=== PATIENT | female | born 1965 | race African-American/Black ===

== ENCOUNTER 2023-08-19 06:25 | Day surgery (SDC) | payer MEDICARE, MEDICAID ==
[~2023-08-19] VITALS: Ht 170.2 cm; Wt 63.1 kg
[2023-08-19] VITALS (11 sets, daily range): BP systolic 141–182; BP diastolic 69–90; PULSE 80–85; TEMP 97.1–98.2
--- NOTE | 2023-08-19 08:55 | NUR ---
pt admitted to room from ED, pt a&OX4. admission assessment complete. vss. pt denies pain. right BKA incision is open w bloody discharge. pt oriented to room. fall precautions in place. call light in reach.
--- NOTE | 2023-08-19 10:30 | NUR ---
med rec not completed, notified OR nurse. med list sent down with chart. pt off floor for surgery
--- NOTE | 2023-08-19 12:15 | NUR ---
pt back on floor from surgery, Lizet MELENDEZ provided bedside shift report. vss. pt a&ox4 but drowsy. dressing to RLE is cdi.
--- NOTE | 2023-08-19 14:37 | NUR ---
pt blood pressure consistently running 170s/80s. called Kenzie REECE to update, order to give home blood pressure medications per paper chart.
--- NOTE | 2023-08-19 15:46 | NUR ---
report called to Gabrielle at [facility]. she will set up transportation for discharge. pt denies pain. blood pressure trending down. pt tolerating intake.
--- NOTE | 2023-08-19 16:23 | NUR ---
[facility] transportation here for pt. pt belongings and discharge paperwork sent with patient.
== END 2023-08-19 16:23 | disposition home or self-care (01) ==
LOC: COL.ER 06:25 → SDCO 08:27 → SURG 08:27 → EDBEDREQTM 08:36 → SDCO 16:23
DX: T87.81 Dehiscence of amputation stump (principal); E11.9 Type 2 diabetes mellitus without complications; Z89.511 Acquired absence of right leg below knee
CPT/HCPCS: OP; J0665; J0690; J2405; J2704

== ENCOUNTER 2023-08-30 09:47 | Outpatient (CLI) | payer MEDICARE, MEDICAID ==
[2023-08-30 10:29] VITALS: BP 162/82; PULSE 83; TEMP 99
[2023-08-30] MEDS ORDERED: IRON TABLETS325 MG PO (10:41)
[2023-08-30] MEDS ORDERED: ROXICODONE 55 MG/TAB PO (10:41)
[2023-08-30] MEDS ORDERED: TYLENOL 325MG325 MG PO (10:41)
[2023-08-30] MEDS ORDERED: ASPIRIN E.C. 8181 MG PO (10:41)
[2023-08-30] MEDS ORDERED: VITAMIN C500 MG PO (10:42)
[2023-08-30] MEDS ORDERED: SENNA-S 50 MG-81 TAB PO (10:42)
[2023-08-30] MEDS ORDERED: LIPITOR 40MG TA40 MG PO (10:42)
[2023-08-30] MEDS ORDERED: COREG12.5 MG PO (10:43)
[2023-08-30] MEDS ORDERED: PLAVIX 75MG TAB75 MG PO (10:49)
[2023-08-30] MEDS ORDERED: HCTZ 25MG TAB25 MG PO (10:49)
[2023-08-30] MEDS ORDERED: ZOLOFT 50MG50 MG (10:49)
[2023-08-30] MEDS ORDERED: COMPLETE MULTI1 TAB PO (10:49)
[2023-08-30] MEDS ORDERED: VITAMIN D31000 I1 PO (10:49)
[2023-08-30] MEDS ORDERED: ZOLOFT 100MG100 MG PO (10:50)
[2023-08-30] MEDS ORDERED: TRADJENTA5 MG PO (10:59)
[2023-08-30] MEDS ORDERED: [UNRECOGNIZED DRUG - CODE] PO (11:00)
[2023-08-30] MEDS ORDERED: NORCO 325 MG-51 TAB PO (11:00)
[2023-08-30] MEDS ORDERED: LYRICA 25MG CAP25 MG PO (11:01)
--- NOTE | 2023-08-30 11:20 | NUR ---
Pt tolerated infusion and observation period without issue. She ate snack of luann crackers during infusion. IV DC'd, site wrapped with coban. She is assisted back to wheelchair, then out to ED entrance to meet [facility] transport staff.
== END 2023-08-30 11:20 ==
LOC: EUO 09:47
DX: D50.9 Iron deficiency anemia, unspecified (principal)
CPT/HCPCS: J1756

== ENCOUNTER → 2024-06-07 | Outpatient (REF) | payer MEDICARE, MEDICAID ==
[~2024-06-07] MED LIST: ASPIRIN E.C. 8181 MG PO; COMPLETE MULTI1 TAB PO; COREG12.5 MG PO; HCTZ 25MG TAB25 MG PO; IRON TABLETS325 MG PO; LIPITOR 40MG TA40 MG PO; LYRICA 25MG CAP25 MG PO; NORCO 325 MG-51 TAB PO; PLAVIX 75MG TAB75 MG PO; ROXICODONE 55 MG/TAB PO; SENNA-S 50 MG-81 TAB PO; TRADJENTA5 MG PO; TYLENOL 325MG325 MG PO; VITAMIN C500 MG PO; VITAMIN D31000 I1 PO; ZOLOFT 100MG100 MG PO; ZOLOFT 50MG50 MG; [UNRECOGNIZED DRUG - CODE] PO
[2024-06-08 07:53] LABS: COLLECTION METHOD CLEAN CATCH
[2024-06-08 07:54] LABS: PH 8.5 (5.0-8.5); URINE APPEARANCE Cloudy (CLEAR/HAZY); URINE BLOOD TRACE-INTACT (NEGATIVE); URINE COLOR Straw (YELLOW); URINE GLUCOSE Negative (NEGATIVE); URINE KETONE Negative (NEGATIVE); URINE NITRATE Negative (NEGATIVE); URINE PROTEIN(semi-quant) 2+ (NEGATIVE); URINE UROBILINOGEN 0.2 E.U/dL (0.2-1.0)
[2024-06-08 08:02] LABS: MUCOUS PRESENT (NOT PRESENT); SQUAMOUS EPITHELIAL NONE SEEN /hpf (0-10); URINE BACTERIA MANY /hpf (NONE SEEN)
== END ==
LOC: ZCOL.LAB 19:13
PROVIDERS: Internal Medicine
DX: N39.0 Urinary tract infection, site not specified (principal)

== ENCOUNTER 2024-06-09 14:26 | Emergency (ER) | payer MEDICARE, MEDICAID ==
[~2024-06-09] VITALS: Ht 170.2 cm; Wt 69.4 kg
[~2024-06-09 14:26] MED LIST changes: +COREG 25MG25 MG/TAB PO; -COREG12.5 MG PO
[2024-06-09] MEDS ORDERED: NS 250 ML IV ONE (16:15)
[2024-06-09 16:27] LABS: BASO % 0.6 % (0.0-2.0); EOS # 0.3 K/mm3 (0.0-0.7); EOS % 3.7 % (0.0-4.0); GRAN # 3.7 K/mm3 (1.4-6.5); GRAN % 52.3 % (42.2-75.2); LYMPH # 1.9 K/mm3 (1.2-3.4); LYMPH % 26.5 % (20.0-51.0); MEAN CELL VOLUME 90 fl (80.0-100.0); MEAN CORPUSCULAR HEMOGLOBIN 30 pg (27-31); MEAN CORPUSCULAR HGB CONC 33 g/dl (33.0-37.0); MEAN PLATELET VOLUME 9.7 fl (7.4-10.4); MONO # 1.2 K/mm3 (0.1-0.6); MONO % 16.5 % (1.7-9.3); PLATELET COUNT 242 K/mm3 (130-400); RED BLOOD COUNT 3.68 M/mm3 (4.10-5.30); REDCELL DISTRIBUTION WIDTH-CV 11.8 % (11.5-14.5)
[2024-06-09 16:28] LABS: HEMATOCRIT 33.2 % (37.0-47.0)
[2024-06-09 16:31] LABS: ACETONE,SERUM NEGATIVE
[2024-06-09 16:37] LABS: ALANINE AMINOTRANSFERASE 14 U/L (0-55); ALBUMIN 3.8 g/dL (3.5-5.0); ALKALINE PHOSPHATASE 58 U/L (40-150); ANION GAP 14 mmol/L (7-16); AST,SGOT 16 U/L (5-34); BILIRUBIN,TOTAL 0.4 mg/dL (0.2-1.2); BLOOD UREA NITROGEN 104 mg/dL (10-20); CREATININE, serum 9.89 mg/dL (0.57-1.11); GLUCOSE 139 mg/dL (70-99); POTASSIUM 4.7 mEq/L (3.5-4.5); SODIUM 137 mEq/L (136-145); TOTAL PROTEIN 8.1 g/dl (6.2-8.1)
[2024-06-09 16:38] LABS: CHLORIDE 87 mEq/L (98-107)
[2024-06-09 16:39] LABS: CALCIUM 12.8 mg/dL (8.4-10.2)
[2024-06-09 16:49] LABS: TROPONIN-I 0.207 ng/mL (0.00-0.033)
[2024-06-09 17:27] LABS: BILIRUBIN,TOTAL 0.4 mg/dL (0.2-1.2); CREATININE, serum 9.98 mg/dL (0.57-1.11); POTASSIUM 4.6 mEq/L (3.5-4.5); TOTAL PROTEIN 8.3 g/dl (6.2-8.1)
[2024-06-09 17:30] LABS: CALCIUM 13.1 mg/dL (8.4-10.2)
[2024-06-09] MEDS ORDERED: LORazepam 1 MG TAB PO ONE (19:15)
[2024-06-09] MEDS ORDERED: Acetaminophen 325 MG TAB PO PRN (22:30)
[2024-06-09] MEDS ORDERED: Docusate Sodium 100 MG CAP PO PRN (22:30)
[2024-06-09] MEDS ORDERED: Polyethylene Glycol 3350 17 GM PDS PO PRN (22:30)
[2024-06-09] MEDS ORDERED: Bisacodyl 5 MG TAB PO PRN (22:30)
[2024-06-09] MEDS ORDERED: LR 1,000 ML IV SCH (22:45)
[2024-06-09] MEDS ORDERED: Glucagon 1 MG VIAL IM PRN (23:00)
[2024-06-09] MEDS ORDERED: Dextrose (Glucose) 15 GM (4 x 3.75 GM) Chewable TABLET PACK PO PRN (23:00)
[2024-06-09] MEDS ORDERED: Dextrose 50% Water 25 GM/50 ML SYRINGE IV PRN (23:00)
[2024-06-09 23:25] VITALS: BP 120/77; PULSE 80; TEMP 97.8
--- NOTE | 2024-06-09 23:50 | NUR ---
RECIEVED REPORT FROM ELENO CHEATHAM RN. PATIENT ARRIVED TO UNIT AROUND 2330. ALL BELONGINGS WITH PATIENT AT TIME OF TRANSFER. PATIENT ALERT AND ORIENTED. NO ACUTE EVENTS.
[2024-06-10] VITALS (9 sets, daily range): BP systolic 106–149; BP diastolic 62–80; PULSE 79–84; TEMP 97.4–98.7
[2024-06-10 00:23] LABS: MAGNESIUM 2.8 mg/dL (1.6-2.6); PHOSPHOROUS 7.5 mg/dL (2.3-4.7)
[2024-06-10 01:37] LABS: COLLECTION METHOD CLEAN CATCH
[2024-06-10 01:38] LABS: MUCOUS PRESENT (NOT PRESENT); URINE BACTERIA MODERATE /hpf (NONE SEEN); URINE WBC >50 /hpf (0-2)
[2024-06-10 01:39] LABS: URINE APPEARANCE TURBID (CLEAR/HAZY); URINE COLOR YELLOW (YELLOW); URINE GLUCOSE NEGATIVE (NEGATIVE); URINE KETONE NEGATIVE (NEGATIVE); URINE PROTEIN(semi-quant) 3+ (NEGATIVE); URINE UROBILINOGEN 0.2 E.U/dL (0.2-1.0)
[2024-06-10 01:40] LABS: URINE BLOOD 2+ (NEGATIVE); URINE NITRATE NEGATIVE (NEGATIVE)
[2024-06-10] MEDS ORDERED: hydrOXYzine HCl 25 MG TAB PO PRN (02:00)
[2024-06-10] MEDS ORDERED: Atropine 1% Ophth Soln 2 ML BOTTLE OP SCH (02:00)
[2024-06-10] MEDS ORDERED: Lactase 9,000 Units TAB PO PRN (02:00)
[2024-06-10] MEDS ORDERED: Insulin Lispro (HumaLOG) SQ SCH (08:00)
[2024-06-10] MEDS ORDERED: Carvedilol 25 MG TAB PO SCH (08:00)
[2024-06-10] MEDS ORDERED: Carvedilol 6.25 MG TAB PO SCH (08:00)
--- NOTE | 2024-06-10 08:45 | NUR ---
PT HAS DRY SKIN ON FACE AND SCABS.
--- NOTE | 2024-06-10 08:45 | NUR ---
PT ALERT AND RESTING IN BED. CONTACT PRECAUTIONS. MEDS GIVEN PER ORDER. HEAD TO TOE ASSESSMENT COMPLETE. PT HAS RIGHT BELOW KNEE AMPUTATION. 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 PT IS LEGALLY BLIND AND PIVOTS TO WHEELCHAIR. DENIES ANY PAIN, BUT REPORTS SHE IS SCARED ABOUT THE OVARIAN MASS. PLAN TO GO TO ULTRASOUND THIS MORNING. CALL LIGHT WITHIN REACH. BED IN LOWEST POSITION. NO FURTHER NEEDS.
[2024-06-10] MEDS ORDERED: OLANZapine 5 MG TAB PO SCH ×2 (09:00→21:00)
[2024-06-10] MEDS ORDERED: Fluticasone Nasal 50 MCG/Spray 16 GM BOTTLE NS SCH (09:00)
[2024-06-10] MEDS ORDERED: Ferrous Sulfate 325 MG TAB PO SCH (09:00)
[2024-06-10] MEDS ORDERED: cefTRIAXone 1 G in Water For Injection,Sterile 10 ML IV SCH (09:00)
[2024-06-10] MEDS ORDERED: Clopidogrel 75 MG TAB PO SCH (09:00)
[2024-06-10] MEDS ORDERED: Cetirizine 10 MG TAB PO SCH (09:00)
[2024-06-10] MEDS ORDERED: lamoTRIgine 25 MG TAB PO SCH (09:00)
--- NOTE | 2024-06-10 10:08 | NUR ---
opinion polls survey worker met with pt in doorway due to contact isolation to discuss discharge planning. She reports to live at [facility] and intends to return back there. She states Dr. Jones is her PCP and obtains medications from [facility] with no difficulties. She confirmed her insurance as Medicare A and B and Medicaid insurance. She reports to need assistance dressing, but is independent otherwise and uses a wheelchair for DME. She does not have a DPOA-HC. She reports her children, Ana Rosa Mejia [phone] and Reji Mejia are her NOK and she is agreeable to this. STANLEY spoke with Nasir at [facility] who confirms pt is there for LTC. They report pt's contact as her mother, Tomas Reyes [phone]. No DPOA-HC, but Nasir requests one be completed. STANLEY advised she will discuss with pt. Discharge Plan: return to [facility] LTC
--- NOTE | 2024-06-10 11:17 | NUR ---
PT CURRENTLY OFF FLOOR. [id number] TO ULTRASOUND BY WHEELCHAIR.
--- NOTE | 2024-06-10 12:05 | NUR ---
PT BACK TO ROOM 318.
--- NOTE | 2024-06-10 13:40 | NUR ---
STANLEY emailed updates to Nasir at [facility]. Discharge Plan: return to [facility] L[facility]
[2024-06-10] MEDS ORDERED: ZYRTEC5 MG PO (13:45)
[2024-06-10] MEDS ORDERED: NORVASC 10MG10 MG PO (13:46)
[2024-06-10] MEDS ORDERED: LAMICTAL 25MG T25 MG PO (13:47)
[2024-06-10] MEDS ORDERED: VITAMIN D31000 IU PO (13:50)
[2024-06-10] MEDS ORDERED: ZYPREXA10 MG PO (13:53)
[2024-06-10] MEDS ORDERED: LUVOX25 MG PO (13:55)
[2024-06-10] MEDS ORDERED: ZYPREXA7.5 MG PO (13:56)
[2024-06-10] MEDS ORDERED: CIPRO 500MG TA500 MG PO (13:58)
[2024-06-10] MEDS ORDERED: ATARAX 25MG25 MG/TAB PO (13:59)
[2024-06-10] MEDS ORDERED: NS 1,000 ML IV SCH (14:30)
[2024-06-10] MEDS ORDERED: Atorvastatin 40 MG TAB PO SCH (21:00)
[2024-06-10] MEDS ORDERED: Sennosides/Docusate 8.6-50 MG TAB PO SCH (21:00)
[2024-06-10] MEDS ORDERED: Patient's Own Medication Item PO SCH (21:00)
[2024-06-11] VITALS (20 sets, daily range): BP systolic 103–149; BP diastolic 63–76; PULSE 77–87; TEMP 97.5–98.4
--- NOTE | 2024-06-11 06:30 | NUR ---
Patient resting in bed. Denies any pain or needs. Call light and personal items in reach. Bed in low position. No changes overnight.
--- NOTE | 2024-06-11 08:05 | NUR ---
PATIENT ALERT AND ORIENTED X3.PATIENT IS ON ROOM AIR, TELEMETRY PLACED.PATIENT REPORTS PAIN OF 8/10 TO BACK. PRN GIVEN. PATIENT HAS YODER CATHETER DRAINING YELLOW URINE. PATIENT HAS GENERALIZED LALA THROUGHOUT BODY. PATIENT OBSERVED PICKING AT SKIN ON HER FORHEAD. PATIENT CALL LIGHT WITHIN REACH. BED AT LOWEST POSITION. BED ALARM ON.
[2024-06-11 09:36] LABS: BASO % 0.5 % (0.0-2.0); EOS # 0.4 K/mm3 (0.0-0.7); EOS % 4.4 % (0.0-4.0); GRAN # 5.3 K/mm3 (1.4-6.5); GRAN % 63.2 % (42.2-75.2); HEMATOCRIT 31.5 % (37.0-47.0); HEMOGLOBIN 10.8 g/dl (12.5-16.0); LYMPH # 1.5 K/mm3 (1.2-3.4); LYMPH % 17.2 % (20.0-51.0); MEAN CELL VOLUME 87 fl (80.0-100.0); MEAN CORPUSCULAR HEMOGLOBIN 30 pg (27-31); MEAN CORPUSCULAR HGB CONC 34 g/dl (33.0-37.0); MEAN PLATELET VOLUME 8.8 fl (7.4-10.4); MONO # 1.2 K/mm3 (0.1-0.6); MONO % 14.1 % (1.7-9.3); PLATELET COUNT 221 K/mm3 (130-400); RED BLOOD COUNT 3.64 M/mm3 (4.10-5.30); REDCELL DISTRIBUTION WIDTH-CV 11.8 % (11.5-14.5)
[2024-06-11 09:56] LABS: ALBUMIN 3.6 g/dL (3.5-5.0); BILIRUBIN,TOTAL 0.3 mg/dL (0.2-1.2); CALCIUM 11.7 mg/dL (8.4-10.2); CREATININE, serum 8.35 mg/dL (0.57-1.11); TOTAL PROTEIN 7.6 g/dl (6.2-8.1)
[2024-06-11] MEDS ORDERED: ceFAZolin 1 G in Water For Injection,Sterile 10 ML IV SCH (12:27)
[2024-06-11] MEDS ORDERED: Lidocaine 2% w EPI (1:100,000) 20 ML Multi-Dose VIAL IJ SCH (12:29)
[2024-06-11] MEDS ORDERED: Midazolam 2 MG/2 ML VIAL IV SCH (12:32)
[2024-06-11] MEDS ORDERED: fentaNYL 50 MCG/ML 2 ML VIAL IV SCH (12:33)
--- NOTE | 2024-06-11 13:03 | NUR ---
Robert is transferred to inpatient dialysis from bed laborer after TDC insertion with Dr. Domínguez. Robert is awake and alert, warm and dry with reg and unlabored respirations. She tolerated the procedure with no problems. Dressing to new TDC is clean and dry, no problems with bleeding at this time. BS report and handoff of care to Rosina MELENDEZ.
--- NOTE | 2024-06-11 14:27 | NUR ---
STANLEY emailed clinical updates to Nasir at [facility].
--- NOTE | 2024-06-11 15:30 | NUR ---
patient back from dialysis
--- NOTE | 2024-06-11 15:32 | NUR ---
Dialysis Note Pt arrived via bed. Consent obtained. Uf goal set for 0.5 kg and 0.5 kg removed. Pt tolerted tx well and dcd back to room via bed withot complaints.
--- NOTE | 2024-06-11 15:38 | NUR ---
Pediatric Radiologist attempted to contact patient's mother, Tomas and left a voicemail.
--- NOTE | 2024-06-11 16:35 | NUR ---
PATIENT GIVEN PRN FOR ANXIETY
--- NOTE | 2024-06-11 19:40 | NUR ---
Patient resting in bed. Rates pain at 5/10 at site of cath insertion, prn pain meds given. Denies any needs at this time. Assessment complete. IV in left AC infusing without complications. Call light and personal items in reach. Bed in low position and bed alarm on.
--- NOTE | 2024-06-11 21:38 | NUR ---
Hospitalist Estefani Saeed NP contacted for patient stating she is still feeling very anxious, would like something to help her sleep, and her cath site it still hurting her. Recieved new orders for PO 9mg melatonin QHS, PRN via phone. Spoke with hospitalist Estefani Saeed NP about ways to help the discomfort with dialysis cath. Recieved verbal orders to give a one time dose of 5/325 [place] PO.
[2024-06-11] MEDS ORDERED: Melatonin 3 MG TAB PO SCH (21:45)
[2024-06-12] VITALS (10 sets, daily range): BP systolic 131–158; BP diastolic 74–77; PULSE 85–90; TEMP 98.1–99.3
--- NOTE | 2024-06-12 05:20 | NUR ---
Patient sitting on edge of bed. States she feels like she is having an anxiety attack, prn pain med given. Patient had another episode of vomiting this morning. Denies any nausea currently. PRN meds given for constipation per patient request. No other events over night. Call light and personal items in reach. Bed in low position and bed alarm on.
[2024-06-12 06:40] LABS: BASO # 0.1 K/mm3 (0.0-0.2); BASO % 0.5 % (0.0-2.0); EOS # 0.4 K/mm3 (0.0-0.7); EOS % 4.2 % (0.0-4.0); GRAN # 6.6 K/mm3 (1.4-6.5); GRAN % 69.2 % (42.2-75.2); HEMATOCRIT 32.2 % (37.0-47.0); HEMOGLOBIN 11.2 g/dl (12.5-16.0); LYMPH # 1.4 K/mm3 (1.2-3.4); LYMPH % 14.9 % (20.0-51.0); MEAN CELL VOLUME 87 fl (80.0-100.0); MEAN CORPUSCULAR HEMOGLOBIN 30 pg (27-31); MEAN CORPUSCULAR HGB CONC 35 g/dl (33.0-37.0); MEAN PLATELET VOLUME 9.1 fl (7.4-10.4); MONO % 10.7 % (1.7-9.3); PLATELET COUNT 211 K/mm3 (130-400); REDCELL DISTRIBUTION WIDTH-CV 11.9 % (11.5-14.5)
[2024-06-12 07:09] LABS: CALCIUM 11.5 mg/dL (8.4-10.2); CREATININE, serum 5.92 mg/dL (0.57-1.11); POTASSIUM 3.7 mEq/L (3.5-4.5)
[2024-06-12] MEDS ORDERED: Heparin 1,000 UNITS/ML 10 ML Multi-Dose VIAL ICA SCH (07:30)
[2024-06-12] MEDS ORDERED: NS 1,000 ML IV SCH (07:30)
--- NOTE | 2024-06-12 08:13 | NUR ---
PATIENT GOING TO DIALYSIS VIA BED. ALERT, ORIENTED, BUT STATES SHE IS FEELING ANXIOUS AT THIS TIME.
--- NOTE | 2024-06-12 10:56 | NUR ---
Dialysis Note Pt arrived to tx via bed. Uf goal set for 0.5kg and 0.5 kg removed. Pt tolerated well and dcd back to room via bed without complaints
--- NOTE | 2024-06-12 13:10 | NUR ---
Primary nurse request that this nurse administer dulcolax suppository to patient. Pt requests oral dulcolax as well as suppository. Large amount of very hard dry stool in rectal vault when attempted to administer suppository- digitally disimpacted- placed suppository without difficulty. Pt tolerated well.
[2024-06-12 13:26] LABS: HEPATITIS B SURFACE ANTIGEN Negative (Negative)
[2024-06-12 13:27] LABS: HEPATITIS B SURFACE ANTIBODY 108.8 (())
--- NOTE | 2024-06-12 15:31 | NUR ---
PATIENT IS MORE COMFORTABLE AFTER BOWEL MOVEMENT, HOWEVER, IS COMPLAINING OF ANXIETY. PATIENT HAS NOT EATEN MUCH TODAY. DENIES PAIN OR DISCOMFORT. HYDROXYZINE PRN PER DEC. CALL TAYLOR FENG. WILL MONITOR
--- NOTE | 2024-06-12 15:47 | NUR ---
Associate Attorney was notified that patient is ready for discharge once outpatient dialysis can be set up. Hospitalist advised patient will need [facility] at [facility] established prior to discharge. STANLEY faxed a referral packet to [facility] admissions. STANLEY received a message from [facility] that all they needs is results of Hep B testing to secure chair time. STANLEY Stephenson faxed clinical updates to [place] at [facility]. STANLEY contacted [place] who will contact [facility] in [place] to help secure chair time that works with their transportation. Discharge Plan: [facility], setting up outpatient dialysis at [facility]
[2024-06-12 18:22] LABS: HEPATITIS B CORE AB,TOTAL Positive (Negative)
[2024-06-12] MEDS ORDERED: Ondansetron 4 MG/2 ML VIAL IV PRN (18:30)
[2024-06-12] MEDS ORDERED: Melatonin 3 MG TAB PO PRN (20:12)
--- NOTE | 2024-06-12 20:15 | NUR ---
Patient resting in bed. States she is feeling anxious, scheduled anxiety meds given. Denies any pain or needs at this time. Assessment complete. IV in left AC flushes easliy without complications. Dialysis Cath site CDI. Call light and personal items in reach. Bed in low position and bed alarm on.
[2024-06-13] VITALS (8 sets, daily range): BP systolic 122–161; BP diastolic 63–84; PULSE 78–85; TEMP 96.9–97.7
[2024-06-13 07:42] LABS: HEMOGLOBIN 11.3 g/dl (12.5-16.0); MEAN CELL VOLUME 87 fl (80.0-100.0); MEAN CORPUSCULAR HEMOGLOBIN 30 pg (27-31); MEAN CORPUSCULAR HGB CONC 35 g/dl (33.0-37.0); MEAN PLATELET VOLUME 8.9 fl (7.4-10.4); PLATELET COUNT 180 K/mm3 (130-400); RED BLOOD COUNT 3.77 M/mm3 (4.10-5.30)
[2024-06-13 07:44] LABS: HEMATOCRIT 32.7 % (37.0-47.0)
[2024-06-13 07:48] LABS: BASO # 0.1 K/mm3 (0.0-0.2); BASO % 0.6 % (0.0-2.0); EOS # 0.4 K/mm3 (0.0-0.7); EOS % 4.9 % (0.0-4.0); GRAN # 5.5 K/mm3 (1.4-6.5); GRAN % 60.6 % (42.2-75.2); LYMPH # 1.8 K/mm3 (1.2-3.4); LYMPH % 20.1 % (20.0-51.0); MONO # 1.2 K/mm3 (0.1-0.6); MONO % 13.2 % (1.7-9.3)
[2024-06-13 07:52] LABS: CALCIUM 11.1 mg/dL (8.4-10.2); CREATININE, serum 4.34 mg/dL (0.57-1.11); POTASSIUM 3.6 mEq/L (3.5-4.5)
--- NOTE | 2024-06-13 09:01 | NUR ---
PATIENT DOWN TO DIALYSIS AT 0850. PATIENT IS ALERT AND ORIENTED. VOMITED A FEW TIMES WHILE GETTING READY FOR DIALYSIS. PATIENT REFUSES ANTIEMETIC AT THIS TIME. PATIENT COMPLAINING OF ANXIETY. THIS RN ADMINISTERED HYDROXYZINE PRN PER DEC. THIS RN GAVE PATIENT BED BATH. YODER DRAINING DEPENDENTLY WITH CLEAR YELLOW URINE IN BAG. TELEMETRY ON. ALL NEEDS MET AT THIS TIME.
[2024-06-13] MEDS ORDERED: COREG12.5 MG PO (09:24)
--- NOTE | 2024-06-13 11:11 | NUR ---
PATIENT BACK FROM DIALYSIS. ALERT AND ORIENTED. DENIES NEEDS OR CONCERNS AT THIS TIME.
--- NOTE | 2024-06-13 12:12 | NUR ---
Dialysis note Pt arrived to unit via WC. uf goal set for 1.o kg. Pt tolerated tx well and was taken back to room via WC without complaints.
--- NOTE | 2024-06-13 12:30 | NUR ---
THIS RN DISCONTINUED YODER CATHETER PER ORDERS. PATIENT WAS RELIEVED AND TOLERATED PROCEDURE WELL. VALERY CARE PROVIDED.
--- NOTE | 2024-06-13 14:01 | NUR ---
PATIENT COMPLAINING OF ANXIETY. THIS RN ADMINISTERED PRN HYDROXYZINE PER DEC. ASSISTED PCT WITH GETTING PATIENT DRESSED AND PACKED FOR DISCHARGE. IV TO LEFT AC DISCONTINUED. MINIMAL OF DRAINAGE NOTED. DENIES FURTHER NEEDS OR CONCERNS AT THIS TIME.
--- NOTE | 2024-06-13 15:09 | NUR ---
PATIENT ESCORTED OFF UNIT VIA WHEELCHAIR WITH [facility] STAFF. ALL BELONGINGS WITH PATIENT. WILL CALL REPORT TO [facility] RN.
--- NOTE | 2024-06-13 15:33 | NUR ---
[employer]ort [employer]eder [employer] was contacted by [facility] who advised chair time is confirmed at the [facility] for MWF 0730. SW contacted Nasir at [facility] who will accept patient today. SW sent discharge orders via secure email. Transport time set for 1400. SW met with patient to present and review IM. Patient verbalized understanding and provided verbal consent as siganture as she is in contact isolation. Original put in chart and copy provided to patient. Discharge Plan: [facility]
[2024-06-17 05:38] LABS: A/G RATIO (PEP) 1.1 (0.7-1.7); BETA GLOBULINS (PEP) 0.9 g/dL (0.7-1.3)
== END 2024-06-09 21:06 | disposition other institution (70) ==
LOC: COL.ER 14:26 → MEDICAL 20:50
PROVIDERS: Emergency Medicine; Internal Medicine; Internal Medicine Nephrology; Nurse Practitioner Primary Care; Physician Assistant
DX: N17.9 Acute kidney failure, unspecified (principal)
CPT/HCPCS: J0690; J0696; J1644; J2250; J2405; J3010; J7030; J7050; J7120; Q3014